=== PATIENT | female | born 1980 | race African-American/Black ===

== ENCOUNTER 2017-03-25 22:18 | Emergency (ER) | payer BC ==
[2017-03-26 00:04] VITALS: BP 126/82
== END 2017-03-26 01:07 | disposition left against medical advice (07) ==
LOC: ER 22:18
DX: Z53.21 Procedure and treatment not carried out due to patient leaving prior to being seen by health care provider (principal)

== ENCOUNTER 2017-03-26 08:53 | Emergency (ER) | payer BC ==
--- NOTE | 2017-03-26 10:39 | EKG REPORT ---
SEVERITY:- NORMAL ECG - SINUS RHYTHM : Confirmed by: June Kwong MD 26-Mar-2017 10:39:22
[2017-03-26] MEDS ORDERED: NORMAL SALINE 1000 ML 1,000 ML IV ONE (10:44)
--- NOTE | 2017-03-26 10:49 | ER Document Report ---
ED Dizziness/Weakness - General Chief Complaint: Dizziness Stated Complaint: WEAKNESS Time Seen by Provider: 03/26/17 10:06 Notes: The patient is a 36-year-old female, past medical history gastric sleeve 1 year ago at [facility], presents with feeling of lightheadedness when she stands and a brief syncopal episode last night. She has not been drinking much fluids in the past. Before the syncopal event, the patient was feeling lightheaded. She did not have any injuries from the event. She denies chest pain, palpitations, fevers, numbness, tingling, blurry vision, urinary symptoms, abdominal pain, nausea, vomiting, headache or neck pain. TRAVEL OUTSIDE OF THE [place] IN LAST 30 DAYS: No - Related Data Allergies/Adverse Reactions: lisinopril Allergy (Verified 03/26/17 08:57) Past Medical History - General Information source: Patient - Social History Smoking Status: Never Smoker Chew tobacco use (# tins/day): No Frequency of alcohol use: None Drug Abuse: None Family History: Reviewed & Not Pertinent Patient has suicidal ideation: No Patient has homicidal ideation: No - Past Medical History Cardiac Medical History: Reports: Hx Hypertension - DX IN 2007 Endocrine Medical History: Reports: Hx Diabetes Mellitus Type 1, Hx Diabetes Mellitus Type 2 - DX IN 2007 Renal/ Medical History: Denies: Hx Peritoneal Dialysis Psychiatric Medical History: Reports: Hx Depression Past Surgical History: Reports: Hx Abdominal Surgery - GALL BLADDER, Hx Cholecystectomy - Immunizations Hx Diphtheria, Pertussis, Tetanus Vaccination: Yes Hx Pneumococcal Vaccination: 11/09/00 Review of Systems - Review of Systems Notes: REVIEW OF SYSTEMS: CONSTITUTIONAL: -fevers, -chills EENT: -eye pain, -difficulty swallowing, -nasal congestion CARDIOVASCULAR:-chest pain, +syncope. RESPIRATORY: -cough, -SOB GASTROINTESTINAL: -abdominal pain, -nausea, -vomiting, -diarrhea GENITOURINARY: -dysuria, -hematuria MUSCULOSKELETAL: -back pain, -neck pain SKIN: -rash or skin lesions. HEMATOLOGIC: -easy bruising or bleeding. LYMPHATIC: -swollen, enlarged glands. NEUROLOGICAL: -altered mental status or loss of consciousness, -headache, - neurologic symptoms PSYCHIATRIC: -anxiety, -depression. ALL OTHER SYSTEMS REVIEWED AND NEGATIVE. Physical Exam - Vital signs Vitals: Temp Pulse Resp BP Pulse Ox 98.0 F 66 18 122/74 98 03/26/17 08:58 03/26/17 08:58 03/26/17 08:58 03/26/17 08:58 03/26/17 08:58 - Notes Notes: PHYSICAL EXAMINATION: GENERAL: Well-appearing, well-nourished and in no acute distress. HEAD: Atraumatic, normocephalic. EYES: Pupils equal round and reactive to light, extraocular movements intact, sclera anicteric, conjunctiva are normal. ENT: nares patent, oropharynx clear without exudates. Moist mucous membranes. NECK: Normal range of motion, supple without lymphadenopathy LUNGS: Breath sounds clear to auscultation bilaterally and equal. No wheezes rales or rhonchi. HEART: Regular rate and rhythm without murmurs ABDOMEN: Soft, nontender, normoactive bowel sounds. No guarding, no rebound. No masses appreciated. EXTREMITIES: Normal range of motion, no pitting or edema. No cyanosis. NEUROLOGICAL: Cranial nerves grossly intact. Normal speech, normal gait. Normal sensory, motor, and reflex exams. PSYCH: Normal mood, normal affect. SKIN: Warm, Dry, normal turgor, no rashes or lesions noted. Course - Re-evaluation Re-evalutation: Pt after a syncopal episode that was preceded with a lightheaded feeling. EKG does not show any arrhythmias or evidence of WPW, [place] or prolonged QTc syndrome. Based on [place] syncope guidelines, patient is low risk and is safe to follow-up with her primary care physician for further evaluation and treatment. She is PERC negative. After IV fluids, patient feels much better and is safe to go home. Instructed her to drink plenty of fluids and to follow- up with her primary care physician. Given strict return precautions and she understands. - Vital Signs Vital signs: Temp Pulse Resp BP Pulse Ox 98.2 F 52 L 22 H 123/83 99 03/26/17 11:01 03/26/17 10:45 03/26/17 11:01 03/26/17 11:01 03/26/17 11:01 - Laboratory Result Diagrams: 03/26/17 10:33 03/26/17 10:33 Laboratory results interpreted by me: 03/26/17 10:33 RDW 14.9 H - EKG Interpretation by Me EKG shows normal: Sinus rhythm, [place], Intervals, QRS Complexes, ST-T Waves Discharge - Discharge Clinical Impression: Lightheaded Condition: Stable Disposition: HOME, SELF-CARE Additional Instructions: Drink plenty of water over the next few days. Follow-up with your primary care physician to have your symptoms rechecked. SYNCOPAL EPISODE: Syncope (fainting or near-fainting) can occur from many different health problems. Or it can be a simple fainting spell requiring no treatment. It is safe for you to go home, but further evaluation will likely be necessary. Your work-up may include tests for internal bleeding, heart disease, medication problems, or near-strokes. Tests are not always required, however, depending on the nature of your problem. The warning signs of an impending faint include: dizziness, lightheadedness , nausea, hot flashes, tingling, and weakness. If this happens, lay down and put your feet up, then wait until all of these symptoms have passed before standing up again. If these episodes become recurrent, or if you develop chest pain, heart palpitations, mental confusion, blurred vision, or headache, then you should call the physician, or go to the emergency room. NEAR SYNCOPAL EPISODE: Syncope or near syncope (fainting or near-fainting) can occur from many different health problems. Or it can be a simple fainting spell requiring no treatment. It is safe for you to go home, but further evaluation will likely be necessary. Your work-up may include tests for internal bleeding, heart disease, medication problems, or near-strokes. Tests are not always required, however, depending on the nature of your problem. The warning signs of an impending faint include: dizziness, lightheadedness , nausea, hot flashes, tingling, and weakness. If this happens, lay down and put your feet up, then wait until all of these symptoms have passed before standing up again. If these episodes become recurrent, or if you develop chest pain, heart palpitations, mental confusion, blurred vision, or headache, then you should call the physician, or go to the emergency room. NORMAL EXAM AND WORKUP: At this time, your examination and workup show no significant abnormality. No significant abnormal physical findings were noted. All laboratory, EKG, and imaging (x-ray, CT scans, ultrasound) studies that were ordered show no significant abnormality. Although your examination and all studies that were ordered showed no significant abnormal finding, there are no examinations and no studies that are 100% accurate. There is always the possibility that some abnormality could exist and not be detected with physical examination or within the limits and capabilities of laboratory and other studies. You should return or follow up as you were instructed on your visit today for further evaluation if your symptoms do not resolve. FOLLOW-UP CARE: If you have been referred to a physician for follow-up care, call the physician s office for an appointment as you were instructed or within the next two days. If you experience worsening or a significant change in your symptoms, notify the physician immediately or return to the Emergency Department at any time for re-evaluation. Referrals: TANVIR INIGUEZ, DO [Primary Care Provider] - Follow up as needed
[2017-03-26 11:08] LABS: ABSOLUTE EOSINOPHILS # (AUTO) 0.1 10^3/uL (0.0-0.6); ABSOLUTE LYMPHOCYTES (AUTO) 2.5 10^3/uL (0.5-4.7); ABSOLUTE MONOCYTES (AUTO) 0.5 10^3/uL (0.1-1.4); ABSOLUTE NEUT (AUTO) 3.8 10^3/uL (1.7-8.2); BASOPHILS % (AUTO) 0.6 % (0-2); EOSINOPHILS % (AUTO) 1.6 % (0-6); HEMATOCRIT 39.7 % (36.0-47.0); HEMOGLOBIN 13.2 g/dL (12.0-15.5); HGB HCT DIFFERENCE -0.1; LYMPHOCYTES % (AUTO) 36.1 % (13-45); MEAN CORPUSCULAR HEMOGLOBIN 29.1 pg (27.0-33.4); MEAN CORPUSCULAR HGB CONC 33.2 g/dL (32.0-36.0); MEAN CORPUSCULAR VOLUME 88 fl (80-97); MONOCYTES % (AUTO) 6.9 % (3-13); RED BLOOD COUNT 4.53 10^6/uL (3.72-5.28); RED CELL DISTRIBUTION WIDTH 14.9 % (11.5-14.0); SEGMENTED NEUTROPHILS % (AUTO) 54.8 % (42-78)
[2017-03-26 11:25] LABS: ANION GAP 11 (5-19); BLOOD UREA NITROGEN 12 mg/dL (7-20); CALCIUM 9.9 mg/dL (8.4-10.2); CARBON DIOXIDE 27 mmol/L (22-30); CHLORIDE 103 mmol/L (98-107); CREATINE KINASE 83 U/L (30-135); CREATININE RESULT 0.66 mg/dL (0.52-1.25); GLUCOSE 93 mg/dL (75-110); POTASSIUM 4.4 mmol/L (3.6-5.0); SODIUM 140.6 mmol/L (137-145)
[2017-03-26 12:05] VITALS: BP 111/62
== END 2017-03-26 12:27 | disposition home or self-care (01) ==
LOC: ER 08:53
DX: R55 Syncope and collapse (principal); E11.9 Type 2 diabetes mellitus without complications; I10 Essential (primary) hypertension; Z98.84 Bariatric surgery status; Z88.8 Allergy status to other drugs, medicaments and biological substances
CPT/HCPCS: 93005; 99284; 96360; 36415; 82550; 84703; 85025; 80048; 84484; 93010; J7030

== ENCOUNTER 2018-11-24 11:19 | Emergency (ER) | payer BC ==
[2018-11-24] MEDS ORDERED: ASPIRIN 81 MG TABLET, CHEWABLE PO ONE (12:43)
--- NOTE | 2018-11-24 12:44 | ER Document Report ---
ED Medical Screen (RME) - General Chief Complaint: Chest Pain Stated Complaint: CHEST PAIN Time Seen by Provider: 11/24/18 12:37 Notes: 38-year-old female to emergency department chief complaint of dizziness, headache and chest pain. States that yesterday she began having some dizziness and followed by chest pain. Currently having a little bit of chest pain, headache and dizziness as well. Has had a stress test in the past. Questionable heart attack but does not know the results of the stress test from 2 years ago. I have greeted and performed a rapid initial assessment of this patient. A comprehensive ED assessment and evaluation of the patient, analysis of test results and completion of the medical decision making process will be conducted by additional ED providers. TRAVEL OUTSIDE OF THE [place] IN LAST 30 DAYS: No - Related Data Allergies/Adverse Reactions: lisinopril Allergy (Verified 11/24/18 11:20) Past Medical History - Social History Frequency of alcohol use: None Drug Abuse: None - Past Medical History Cardiac Medical History: Reports: Hx Hypertension - DX IN 2007, not since gastric sleeve Endocrine Medical History: Reports: Hx Diabetes Mellitus Type 1, Hx Diabetes Mellitus Type 2 - DX IN 2007, not since gastric sleeve Renal/ Medical History: Denies: Hx Peritoneal Dialysis Psychiatric Medical History: Reports: Hx Depression Past Surgical History: Reports: Hx Abdominal Surgery - GALL BLADDER, Hx Cholecystectomy - Immunizations Hx Diphtheria, Pertussis, Tetanus Vaccination: Yes Review of Systems - Review of Systems Notes: View of systems positive for the following: Chest pain, dizziness, headache Physical Exam - Vital signs Vitals: Temp Pulse Resp BP Pulse Ox 98.6 F 78 18 132/68 H 100 11/24/18 11:35 11/24/18 11:35 11/24/18 11:35 11/24/18 11:35 11/24/18 11:35 - General General appearance: Appears well, Alert - Respiratory Respiratory status: No respiratory distress Chest status: Nontender Breath sounds: Normal Chest palpation: Normal - Cardiovascular Rhythm: Regular Heart sounds: Normal auscultation Murmur: No Course - Vital Signs Vital signs: Temp Pulse Resp BP Pulse Ox 98.6 F 78 18 132/68 H 100 11/24/18 11:35 11/24/18 11:35 11/24/18 11:35 11/24/18 11:35 11/24/18 11:35 Doctor's Discharge - Discharge Referrals: TANVIR INIGUEZ, [Primary Care Provider] - Follow up as needed
[2018-11-24 13:37] LABS: ABSOLUTE EOSINOPHILS # (AUTO) 0.1 10^3/uL (0.0-0.6); ABSOLUTE LYMPHOCYTES (AUTO) 3.3 10^3/uL (0.5-4.7); ABSOLUTE MONOCYTES (AUTO) 0.5 10^3/uL (0.1-1.4); ABSOLUTE NEUT (AUTO) 4.7 10^3/uL (1.7-8.2); BASOPHILS % (AUTO) 0.5 % (0-2); EOSINOPHILS % (AUTO) 0.7 % (0-6); HEMATOCRIT 35.3 % (36.0-47.0); HEMOGLOBIN 11.5 g/dL (12.0-15.5); LYMPHOCYTES % (AUTO) 38.2 % (13-45); MEAN CORPUSCULAR HGB CONC 32.5 g/dL (32.0-36.0); MEAN CORPUSCULAR VOLUME 80 fl (80-97); MONOCYTES % (AUTO) 6.3 % (3-13); PLATELET COUNT 261 10^3/uL (150-450); RED BLOOD COUNT 4.43 10^6/uL (3.72-5.28); RED CELL DISTRIBUTION WIDTH 15.6 % (11.5-14.0); SEGMENTED NEUTROPHILS % (AUTO) 54.3 % (42-78); TOTAL CELLS COUNTED % (AUTO) 100 %; WHITE BLOOD COUNT 8.6 10^3/uL (4.0-10.5)
--- NOTE | 2018-11-24 14:05 | RADIOLOGY REPORT (SQ) ---
EXAM DESCRIPTION: CHEST SINGLE VIEW COMPLETED DATE/TIME: 11/24/2018 1:38 pm REASON FOR STUDY: chest pain COMPARISON: 08/27/2016. EXAM PARAMETERS: NUMBER OF VIEWS: One view. TECHNIQUE: Single frontal radiographic view of the chest acquired. RADIATION DOSE: NA LIMITATIONS: None. FINDINGS: LUNGS AND PLEURA: No opacities, masses or pneumothorax. No pleural effusion. MEDIASTINUM AND HILAR STRUCTURES: No masses. Contour normal. HEART AND VASCULAR STRUCTURES: Heart normal in size. Normal vasculature. BONES: No acute findings. HARDWARE: None in the chest. OTHER: No other significant finding. IMPRESSION: NO ACUTE RADIOGRAPHIC FINDING IN THE CHEST. TECHNICAL DOCUMENTATION: JOB ID: [id number] [employer]- All Rights Reserved Reading location - IP/workstation name: [email or web address]
[2018-11-24 14:10] LABS: ALANINE AMINOTRANSFERASE 18 U/L (9-52); ALBUMIN 3.9 g/dL (3.5-5.0); ALKALINE PHOSPHATASE 73 U/L (38-126); ASPARTATE AMINO TRANSFERASE 19 U/L (14-36); BILIRUBIN,DIRECT 0.1 mg/dL (0.0-0.4); BILIRUBIN,TOTAL 0.4 mg/dL (0.2-1.3); BLOOD UREA NITROGEN 12 mg/dL (7-20); CALCIUM 9.4 mg/dL (8.4-10.2); CREATINE KINASE 58 U/L (30-135); GLUCOSE 84 mg/dL (75-110); POTASSIUM 4.3 mmol/L (3.6-5.0); TOTAL PROTEIN 6.8 g/dL (6.3-8.2)
[2018-11-24 14:15] LABS: CARBON DIOXIDE 28 mmol/L (22-30); CHLORIDE 107 mmol/L (98-107)
[2018-11-24 14:18] LABS: ANION GAP 4 (5-19)
[2018-11-24 14:20] LABS: CREATINE KINASE MB 0.24 ng/mL (<4.55)
[2018-11-24] MEDS ORDERED: MECLIZINE HCL 25 MG TABLET PO ONE (14:21)
[2018-11-24] MEDS ORDERED: ACETAMINOPHEN 325 MG TABLET PO ONE (14:22)
[2018-11-24 14:24] LABS: TROPONIN I < 0.012 ng/mL
--- NOTE | 2018-11-24 14:30 | ER Document Report ---
ED General - General Chief Complaint: Chest Pain Stated Complaint: CHEST PAIN Time Seen by Provider: 11/24/18 12:37 Notes: Patient is a 38-year-old female that presents to the emergency department for chief complaint of dizziness and chest discomfort. Patient states that briefly this morning she had some chest discomfort, that has since resolved, lasted less than 20 minutes, she described as a tightness on the left side of her chest, no associated shortness of breath, difficulty breathing, nausea, vomiting. She states she had some dizziness, and some mild room spinning, which is also resolved, she had a similar episode on Thursday with the dizziness, and she is had this in the past as well. She denies having any vomiting associated with this. But does admit to having a mild headache, she describes as a mild dull ache, she has had worse headaches in the past. Denies any numbness, tingling or weakness in any extremity. No other complaints at this time. She does report having a history of having a cardiac stress test within the last 2 years, that was negative. Past Medical History: History of diabetes, hypertension and sleep apnea, that have since resolved after gastric sleeve surgery Past Surgical History: Gastric sleeve, cholecystectomy Social History: Denies tobacco, alcohol or drug use. Family History: Reviewed and noncontributory for presenting illness Allergies: Reviewed, see documented allergy list. REVIEW OF SYSTEMS: Other than noted above, the 12 point review of systems was reviewed with the patient and were negative, all pertinent findings are included in the HPI. PHYSICAL EXAMINATION: Vital signs reviewed, nursing noted reviewed. GENERAL: Well-appearing, well-nourished and in no acute distress. HEAD: Atraumatic, normocephalic. EYES: Eyes appear normal, extraocular movements intact, sclera anicteric, conjunctiva are normal. ENT: nares patent, oropharynx clear without exudates. Moist mucous membranes. TMs appear normal bilaterally. NECK: Normal range of motion, supple without lymphadenopathy LUNGS: Breath sounds clear to auscultation bilaterally and equal. No wheezes rales or rhonchi. HEART: Regular rate and rhythm without murmurs ABDOMEN: Soft, nontender, normoactive bowel sounds. No rebound, guarding, or rigidity. No masses appreciated. EXTREMITIES: Nontender, good range of motion, no pitting or edema. NEUROLOGICAL: No focal neurological deficits. Moves all extremities spontaneously Motor and sensory grossly intact on exam. PSYCH: Normal mood, normal affect. SKIN: Warm, Dry, normal turgor, no rashes or lesions noted on exposed skin TRAVEL OUTSIDE OF THE [place] IN LAST 30 DAYS: No - Related Data Allergies/Adverse Reactions: lisinopril Allergy (Verified 11/24/18 11:20) Past Medical History - Social History Smoking Status: Never Smoker Frequency of alcohol use: None Drug Abuse: None Family History: Reviewed & Not Pertinent Patient has suicidal ideation: No Patient has homicidal ideation: No - Past Medical History Cardiac Medical History: Reports: Hx Hypertension - DX IN 2007, not since gastric sleeve Endocrine Medical History: Reports: Hx Diabetes Mellitus Type 1, Hx Diabetes Mellitus Type 2 - DX IN 2007, not since gastric sleeve Renal/ Medical History: Denies: Hx Peritoneal Dialysis Psychiatric Medical History: Reports: Hx Depression Past Surgical History: Reports: Hx Abdominal Surgery - GALL BLADDER, Hx Cholecystectomy - Immunizations Hx Diphtheria, Pertussis, Tetanus Vaccination: Yes Hx Pneumococcal Vaccination: 11/09/00 Physical Exam - Vital signs Vitals: Temp Pulse Resp BP Pulse Ox 98.6 F 78 18 132/68 H 100 11/24/18 11:35 11/24/18 11:35 11/24/18 11:35 11/24/18 11:35 11/24/18 11:35 Course - Re-evaluation Re-evalutation: Presentation of chest pain in an otherwise well appearing patient. Low clinical suspicion for ACS given clinical history, exam, EKG without ST elevations or depressions, and negative initial troponin. HEART score less than or equal to 3. PE also seems unlikely given clinical history, absence of tachycardia or dyspnea. Patient is PERC criteria negative. CXR without evidence of pneumothorax or pneumonia. No widened mediastinum. Aortic dissection also seems unlikely given history, symmetric pulses, CXR, and vitals. HEART Score: History 0 ECG 0 Age 0 Risk Factors 1 Troponin 0 Total: 1 Chest pain in a patient without evidence of cardiac or other serious etiology on workup today. I discussed with patient that, based on their age, risk factors and emergency department testing today, the likelihood that their symptoms are related to a heart attack is very low (estimated risk of heart attack or over the next 30 days of less than 1%). The patient demonstrates decision making capacity and has verbalized an understanding of these risks to me. Based on this, the patient has chosen to follow-up as an outpatient. Usual chest pain return precautions reviewed. The patient states understanding and agreement with this plan. Patient was given aspirin ordered by triage provider, she is also given Tylenol for her mild headache, and meclizine, for the dizziness she was having, that was resolved, but want to prevent further vertigo symptoms. Her symptoms seem most consistent with benign positional vertigo, advised follow-up will prescribe meclizine to take if needed, advised her to follow-up with her primary care, to have repeat cardiac stress testing although her heart score today is 1, and low risk, patient agreeable to this plan of care. - Vital Signs Vital signs: Temp Pulse Resp BP Pulse Ox 98.6 F 78 18 132/68 H 100 11/24/18 11:35 11/24/18 11:35 11/24/18 11:35 11/24/18 11:35 11/24/18 11:35 - Laboratory Result Diagrams: 11/24/18 13:10 11/24/18 13:10 Laboratory results interpreted by me: 11/24/18 11/24/18 13:10 13:10 Hgb 11.5 L Hct 35.3 L MCH 26.0 L RDW 15.6 H Anion Gap 4 L - EKG Interpretation by Me Additional EKG results interpreted by me: EKG demonstrates sinus rhythm with a ventricular rate of 76 bpm, normal axis, normal intervals, no evidence of acute ischemia on this EKG, this is compared with prior EKG from 03/26/2017 without significant change. Discharge - Discharge Clinical Impression: Dizziness Condition: Stable Disposition: HOME, SELF-CARE Instructions: Dizziness ([facility]) Additional Instructions: Please return to the emergency department if you have any worsening, or concern of your symptoms. Please return to the emergency department if you develop chest pain, difficulty breathing, severe abdominal pain, or ongoing vomiting. Please follow-up with your primary care physician in 2-3 days and any other recommended physicians. If prescribed, take all medications as directed. If you have any questions or concerns do not hesitate to return the emergency department for evaluation. Prescriptions: RX: Meclizine HCl [Antivert 25 mg Tablet] 25 mg PO TID PRN #21 tablet PRN Reason: Dizziness Referrals: GEETHA,TANVIR RADHA, DO [Primary Care Provider] - Follow up as needed GREG CORTEZ MD [ACTIVE STAFF] - Follow up in 3-5 days (cardiology for stress test )
[2018-11-24 16:22] VITALS: BP 123/76
--- NOTE | 2018-11-24 18:00 | EKG REPORT ---
SEVERITY:- BORDERLINE ECG - SINUS RHYTHM BORDERLINE T WAVE ABNORMALITIES : Confirmed by: Marianela Carlos 24-Nov-2018 17:59:56
== END 2018-11-24 16:23 | disposition home or self-care (01) ==
LOC: ER 11:19
DX: R42 Dizziness and giddiness (principal); R07.9 Chest pain, unspecified; Z90.49 Acquired absence of other specified parts of digestive tract; Z98.84 Bariatric surgery status
CPT/HCPCS: 36415; 71045; 80053; 82550; 82553; 84484; 85025; 93005; 93010; 99285

== ENCOUNTER 2018-12-27 10:15 | Emergency (ER) | payer BC ==
[2018-12-27] MEDS ORDERED: ACETAMINOPHEN 325 MG TABLET PO ONE (10:46)
--- NOTE | 2018-12-27 10:46 | ER Document Report ---
ED Medical Screen (RME) - General Chief Complaint: Chest Pain Stated Complaint: PALPITATIONS Time Seen by Provider: 12/27/18 10:36 Primary Care Provider: TANVIR INIGUEZ DO [Primary Care Provider] - Follow up as needed Notes: Patient is a 38-year-old female that presents to the emergency department for chief complaint of chest pains and palpitation. Patient states his been having symptoms off and on, not currently experiencing chest pain but had it earlier in the waiting room, had stress test she thinks about 1 year ago that was negative. ROS: Other than noted above, the 12 point review of systems was reviewed with the patient and were negative, all pertinent findings are included in the HPI. PHYSICAL EXAMINATION: Vital signs reviewed. GENERAL: Well-appearing, well-nourished and in no acute distress. HEAD: Atraumatic, normocephalic. EYES: Pupils equal round extraocular movements intact, conjunctiva are normal. ENT: Nares patent NECK: Normal range of motion CV: Heart regular rate and rhythm LUNGS: No respiratory distress Musculoskeletal: Normal range of motion NEUROLOGICAL: Normal speech PSYCH: Normal mood, normal affect. MDM: Patient seen and examined for rapid initial assessment. Vital signs reviewed. A comprehensive ED assessment and evaluation of the patient, analysis of test results and completion of the medical decision making process will be conducted by additional ED providers. *Note is created using voice recognition software and may contain spelling, syntax or grammatical errors. TRAVEL OUTSIDE OF THE [place] IN LAST 30 DAYS: No - Related Data Allergies/Adverse Reactions: lisinopril Allergy (Verified 12/27/18 10:16) Past Medical History - Social History Frequency of alcohol use: None Drug Abuse: None - Past Medical History Cardiac Medical History: Reports: Hx Heart Attack - "mild", Hx Hypertension - DX IN 2007, not since gastric sleeve Endocrine Medical History: Reports: Hx Diabetes Mellitus Type 1, Hx Diabetes Mellitus Type 2 - DX [place] 2007, not since gastric sleeve Renal/ Medical History: Denies: Hx Peritoneal Dialysis Psychiatric Medical History: Reports: Hx Depression Past Surgical History: Reports: Hx Abdominal Surgery - GALL BLADDER, Hx Cholecystectomy - Immunizations Hx Diphtheria, Pertussis, Tetanus Vaccination: Yes Physical Exam - Vital signs Vitals: Temp Pulse Resp BP Pulse Ox 99.8 F 65 18 126/68 H 100 12/27/18 10:29 12/27/18 10:29 12/27/18 10:29 12/27/18 10:29 12/27/18 10:29 Course - Vital Signs Vital signs: Temp Pulse Resp BP Pulse Ox 99.8 F 65 18 126/68 H 100 12/27/18 10:29 12/27/18 10:29 12/27/18 10:29 12/27/18 10:29 12/27/18 10:29 Doctor's Discharge - Discharge Referrals: TANVIR INIGUEZ DO [Primary Care Provider] - Follow up as needed
--- NOTE | 2018-12-27 11:04 | EKG REPORT ---
SEVERITY:- NORMAL ECG - SINUS RHYTHM : Confirmed by: Juancho Becker MD 27-Dec-2018 11:04:10
--- NOTE | 2018-12-27 11:33 | RADIOLOGY REPORT (SQ) ---
EXAM DESCRIPTION: CHEST SINGLE VIEW COMPLETED DATE/TIME: 12/27/2018 11:08 am REASON FOR STUDY: cp COMPARISON: AP chest 11/24/2018, 08/27/2016 Two-view chest 05/21/2016 EXAM PARAMETERS: NUMBER OF VIEWS: One view. TECHNIQUE: Single frontal radiographic view of the chest acquired. RADIATION DOSE: NA LIMITATIONS: None. FINDINGS: LUNGS AND PLEURA: No opacities, masses or pneumothorax. No pleural effusion. MEDIASTINUM AND HILAR STRUCTURES: No masses. Contour normal. HEART AND VASCULAR STRUCTURES: Heart normal in size. Normal vasculature. BONES: No acute findings. HARDWARE: None in the chest. OTHER: No other significant finding. IMPRESSION: NO ACUTE RADIOGRAPHIC FINDING IN THE CHEST. TECHNICAL DOCUMENTATION: JOB ID: [id number] [employer]- All Rights Reserved Reading location - IP/workstation name: [email or web address]
[2018-12-27 12:00] LABS: ABSOLUTE BASOPHILS # (AUTO) 0.1 10^3/uL (0.0-0.2); ABSOLUTE EOSINOPHILS # (AUTO) 0.1 10^3/uL (0.0-0.6); ABSOLUTE LYMPHOCYTES (AUTO) 3.4 10^3/uL (0.5-4.7); ABSOLUTE MONOCYTES (AUTO) 0.5 10^3/uL (0.1-1.4); ABSOLUTE NEUT (AUTO) 5.1 10^3/uL (1.7-8.2); BASOPHILS % (AUTO) 0.7 % (0-2); EOSINOPHILS % (AUTO) 0.6 % (0-6); HEMATOCRIT 36.2 % (36.0-47.0); HEMOGLOBIN 11.8 g/dL (12.0-15.5); MEAN CORPUSCULAR HEMOGLOBIN 25.6 pg (27.0-33.4); MEAN CORPUSCULAR HGB CONC 32.5 g/dL (32.0-36.0); MEAN CORPUSCULAR VOLUME 79 fl (80-97); MONOCYTES % (AUTO) 5.3 % (3-13); PLATELET COUNT 284 10^3/uL (150-450); RED CELL DISTRIBUTION WIDTH 15.6 % (11.5-14.0); SEGMENTED NEUTROPHILS % (AUTO) 56.4 % (42-78); TOTAL CELLS COUNTED % (AUTO) 100 %; WHITE BLOOD COUNT 9.1 10^3/uL (4.0-10.5)
[2018-12-27 12:10] LABS: ALANINE AMINOTRANSFERASE 12 U/L (9-52); ALBUMIN 4.2 g/dL (3.5-5.0); ALKALINE PHOSPHATASE 76 U/L (38-126); ANION GAP 9 (5-19); ASPARTATE AMINO TRANSFERASE 22 U/L (14-36); BILIRUBIN,DIRECT 0.5 mg/dL (0.0-0.4); BLOOD UREA NITROGEN 13 mg/dL (7-20); CALCIUM 9.5 mg/dL (8.4-10.2); CARBON DIOXIDE 25 mmol/L (22-30); CHLORIDE 105 mmol/L (98-107); GLUCOSE 105 mg/dL (75-110); POTASSIUM 4.6 mmol/L (3.6-5.0); SODIUM 139.2 mmol/L (137-145); TOTAL PROTEIN 7.3 g/dL (6.3-8.2)
--- NOTE | 2018-12-27 12:43 | ER Document Report ---
ED General - General Chief Complaint: Chest Pain Stated Complaint: PALPITATIONS Time Seen by Provider: 12/27/18 10:36 Primary Care Provider: TANVIR INIGUEZ DO [Primary Care Provider] - Follow up as needed Notes: 38-year-old female presents to the ER complaining of mild chest discomfort and palpitations. The patient stated this started about 8 PM. Stated that she felt dizzy and felt her heart racing. He felt short of breath. This is resolved. The patient had a similar episode of this 2 years ago where she was sent to [place] and had a negative stress test. She was initially told that she had a heart attack here but when she arrived in [place] they told her she did not. Patient stated she had a negative stress test has been fine up until last night she was just watching TV. Denies any stress or illicit drug use. She complained of the sensation of a rapid heart rate palpitations shortness of breath and dizziness that has since resolved. She denies any fever chills had a has had a little nasal congestion due to the weather change otherwise has felt okay TRAVEL OUTSIDE OF THE [place] IN LAST 30 DAYS: No - Related Data Allergies/Adverse Reactions: lisinopril Allergy (Verified 12/27/18 10:16) Past Medical History - Social History Smoking Status: Never Smoker Frequency of alcohol use: None Drug Abuse: None Family History: Reviewed & Not Pertinent Patient has suicidal ideation: No Patient has homicidal ideation: No - Past Medical History Cardiac Medical History: Reports: Hx Heart Attack - "mild", Hx Hypertension - DX IN 2007, not since gastric sleeve Endocrine Medical History: Reports: Hx Diabetes Mellitus Type 1, Hx Diabetes Mellitus Type 2 - DX IN 2007, not since gastric sleeve Renal/ Medical History: Denies: Hx Peritoneal Dialysis Psychiatric Medical History: Reports: Hx Depression Past Surgical History: Reports: Hx Abdominal Surgery - GALL BLADDER, Hx Cholecystectomy - Immunizations Hx Diphtheria, Pertussis, Tetanus Vaccination: Yes Hx Pneumococcal Vaccination: 11/09/00 Review of Systems - Review of Systems Constitutional: denies: Chills, Fever EENT: Nose congestion Cardiovascular: Chest pain, Palpitations, Heart racing, Dyspnea Respiratory: Cough, Short of breath Gastrointestinal: denies: Nausea, Vomiting -: Yes All other systems reviewed and negative Physical Exam - Vital signs Vitals: Temp Pulse Resp BP Pulse Ox 99.8 F 65 18 126/68 H 100 12/27/18 10:29 12/27/18 10:29 12/27/18 10:29 12/27/18 10:29 12/27/18 10:29 - Notes Notes: GENERAL_APPEARANCE: well_nourished, alert, cooperative, no_acute_distress, no_obvious_discomfort. VITALS: reviewed, see vital signs table. HEAD: no_swelling\\tenderness on the head. EYES: PERRL, EOMI, conjunctiva_clear. NOSE: no_nasal_discharge. MOUTH: (-)decreased moisture. THROAT: no_tonsilar_inflammation, no_airway_obstruction. no_lymphadenopathy NECK: supple, no_neck_tenderness, (-)thyromegaly. BACK: no_back_tenderness. CHEST_WALL: no_chest_tenderness. LUNGS: no_wheezing, no_rales, no_rhonchi, (-)accessory muscle use, good air exchange bilateral. HEART: normal_rate, normal_rhythm, normal_S1, normal_S2, (-)S3, (-)S4, no_murmur, no_rub. ABDOMEN: normal_BS, soft, no_abd_tenderness, (-)guarding, (-)rebound, no_organo megaly, no_abd_masses. EXTREMITIES: good pulses in all_extremities, no_swelling\\tenderness in the extremities, no_edema. SKIN: warm, dry, good_color, no_rash. MENTAL_STATUS: speech_clear, oriented_X_3, anxious _affect, responds_appropriately to questions. Course - Re-evaluation Re-evalutation: 12/27/18 12:42 38-year-old female presents with dizziness shortness of breath and palpitations. Patient is feeling better now we will work her up and monitor her on the monitoring analyst. So far no arrhythmia has been seen 12/27/18 14:22 Work appears look good been negative. We have been watching her on telemetry and she has had no ectopy runs of A. fib or a flutter. No arrhythmias. The patient is feeling much better. There is no troponin elevation. My suspicion for ACS here is low. The clinical history seems more consistent with palpitations. I spoke with her about this if she has additional symptoms she is to return and she may need to be set up with a Holter monitor. - Vital Signs Vital signs: Temp Pulse Resp BP Pulse Ox 99.8 F 65 21 H 109/75 100 12/27/18 10:29 12/27/18 10:29 12/27/18 13:01 12/27/18 13:01 12/27/18 13:01 - Laboratory Result Diagrams: 12/27/18 11:45 12/27/18 11:45 Laboratory results interpreted by me: 12/27/18 12/27/18 11:45 11:45 Hgb 11.8 L MCV 79 L MCH 25.6 L RDW 15.6 H Direct Bilirubin 0.5 H - EKG Interpretation by Me EKG shows normal: Sinus rhythm Rate: Normal When compared to previous EKG there are: No significant change Discharge - Discharge Clinical Impression: Palpitations Condition: Good Disposition: HOME, SELF-CARE Instructions: Palpitations (Irregular or Rapid Heartrate) (OM) Additional Instructions: If you begin having repeat palpitations you may need to return to the ER so that we can reevaluate your heart rhythm. Referrals: TANVIR INIGUEZ DO [Primary Care Provider] - Follow up as needed
[2018-12-27 16:41] VITALS: BP 113/62
== END 2018-12-27 16:35 | disposition home or self-care (01) ==
LOC: ER 10:15
DX: R00.2 Palpitations (principal); R07.9 Chest pain, unspecified; R42 Dizziness and giddiness; R09.81 Nasal congestion; R05 Cough; R06.02 Shortness of breath; Z98.84 Bariatric surgery status
CPT/HCPCS: 36415; 71045; 80053; 84484; 85025; 93005; 93010; 99285

== ENCOUNTER 2019-06-03 02:08 | Emergency (ER) | payer BC, OTHER ==
[2019-06-03] MEDS ORDERED: NORMAL SALINE 1000 ML 1,000 ML IV ONE (02:41)
[2019-06-03] MEDS ORDERED: ONDANSETRON HCL INJ/PF 4 MG/2 ML SDV IV ONE (02:41)
[2019-06-03] MEDS ORDERED: KETOROLAC TROMETHAMINE INJ/PF 30 MG/1 ML SDV IV ONE (02:41)
[2019-06-03] MEDS ORDERED: MORPHINE SULFATE 10 MG/ML INJ IV ONE (02:41)
--- NOTE | 2019-06-03 02:47 | ER Document Report ---
ED GI/ - General Chief Complaint: Flank Pain Stated Complaint: FLANK PAIN Time Seen by Provider: 06/03/19 02:27 Primary Care Provider: TANVIR INIGUEZ DO [NO LOCAL MD] - Follow up as needed Notes: Patient is a 39-year-old female that comes emergency department for chief complaint of sharp mid bilateral abdominal pain and pain radiating to her back on both sides. Pain is actually worse in the back. She states symptoms started during the day, worsened into this evening, did not resolve with Tylenol at home . She states that she has had the same pain "many times", states that no one has ever figured out the problem. She has a history of gastric bypass, denies abdominal surgeries otherwise. She is currently on her menstrual cycle. She denies dysuria, fever/chills, vomiting. Patient does state that she has not had a bowel movement in several days, she took a stool softener and laxative with no results. TRAVEL OUTSIDE OF THE [place] IN LAST 30 DAYS: No - Related Data Allergies/Adverse Reactions: lisinopril Allergy (Verified 12/27/18 10:16) Past Medical History - General Information source: Patient - Social History Smoking Status: Never Smoker Frequency of alcohol use: None Drug Abuse: None Lives with: Family Family History: Reviewed & Not Pertinent - Past Medical History Cardiac Medical History: Reports: Hx Heart Attack - "mild", Hx Hypertension - DX IN 2007, not since gastric sleeve Endocrine Medical History: Reports: Hx Diabetes Mellitus Type 1, Hx Diabetes Mellitus Type 2 - DX IN 2007, not since gastric sleeve Renal/ Medical History: Denies: Hx Peritoneal Dialysis Psychiatric Medical History: Reports: Hx Depression Past Surgical History: Reports: Hx Abdominal Surgery - GALL BLADDER, Hx Cholecystectomy - Immunizations Hx Diphtheria, Pertussis, Tetanus Vaccination: Yes Hx Pneumococcal Vaccination: 11/09/00 Review of Systems - Review of Systems Constitutional: See HPI EENT: No symptoms reported Cardiovascular: No symptoms reported Respiratory: No symptoms reported Gastrointestinal: See HPI Genitourinary: See HPI Female Genitourinary: See HPI Musculoskeletal: No symptoms reported Skin: No symptoms reported Hematologic/Lymphatic: No symptoms reported Neurological/Psychological: No symptoms reported Physical Exam - Vital signs Vitals: Temp Pulse BP Pulse Ox 99.5 F 103 H 136/75 H 97 06/03/19 02:12 06/03/19 02:12 06/03/19 02:12 06/03/19 02:12 - Notes Notes: GENERAL: Mildly uncomfortable but not in severe distress HEAD: Normocephalic, atraumatic. EYES: Pupils equal, round, and reactive to light. Extraocular movements intact. ENT: Oral mucosa moist, tongue midline. Oropharynx unremarkable. Airway patent. LUNGS: Clear to auscultation bilaterally, no wheezes, rales, or rhonchi. No respiratory distress. HEART: Regular rate and rhythm. No murmur ABDOMEN: Minimal generalized mid to lower abdominal tenderness, nonspecific, no guarding or rigidity. GENITOURINARY: Deferred EXTREMITIES: Moves all 4 extremities spontaneously. No edema, normal radial and dorsalis pedis pulses bilaterally. No cyanosis. BACK: no cervical, thoracic, lumbar midline tenderness. There is some CVA tenderness bilaterally but this is very mild. No saddle anesthesia, normal distal neurovascular exam. Moves all extremities in full range of motion. NEUROLOGICAL: Alert and oriented x3. Normal speech. Cranial nerves II through XII grossly intact. PSYCH: Slightly anxious SKIN: Warm, dry, normal turgor. No rashes or lesions noted. Course - Re-evaluation Re-evalutation: Patient appears uncomfortable but not toxic. Vital signs are unremarkable. She does have some CVA tenderness but not severe. This is bilateral. Abdomen is actually quite benign. After medications and IV fluids symptoms resolved. Patient is much improved on reevaluation. CBC nonspecific without leukocytosis, chemistry unremarkable. Urinalysis is a clean sample and indicates a urinary tract infection. Based on her presentation I suspect pyelonephritis. X-ray does not show constipation as patient thought, does not show free air either, I do not suspect perforation from gastric bypass. I discussed with patient. Because her symptoms are bilateral, she does not have a history of kidney stones, I have a low suspicion of obstructive/infected ureterolithiasis. Patient will be treated with Rocephin first and then ant ibiotics at home, providing with symptom management, discussed expectations, follow-up, and return precautions. Cultures pending. Patient states satisfaction and agreement. Stable at time of discharge. - Vital Signs Vital signs: Temp Pulse Resp BP Pulse Ox 98.8 F 88 17 112/57 L 98 06/03/19 05:07 06/03/19 05:07 06/03/19 05:07 06/03/19 05:07 06/03/19 05:07 - Laboratory Result Diagrams: 06/03/19 03:10 06/03/19 03:10 Laboratory results interpreted by me: 06/03/19 06/03/19 06/03/19 02:53 03:10 03:10 Hgb 11.3 L Hct 34.7 L MCV 78 L MCH 25.3 L RDW 17.7 H Seg Neutrophils % 89.4 H Lymphocytes % 9.2 L Monocytes % 0.7 L Absolute Neutrophils 8.8 H Chloride 108 H Glucose 122 H Urine Protein 30 H Urine Blood LARGE H Urine Nitrite POSITIVE H Ur Leukocyte Esterase SMALL H Discharge - Discharge Clinical Impression: Flank pain Abdominal pain Qualifiers: Abdominal location: generalized Qualified Code(s): R10.84 - Generalized abdominal pain Urinary tract infection Qualifiers: Urinary tract infection type: site unspecified Hematuria presence: without hematuria Qualified Code(s): N39.0 - Urinary tract infection, site not specified Condition: Stable Disposition: HOME, SELF-CARE Additional Instructions: Your evaluation and work-up are most consistent with a kidney infection. Take antibiotics as prescribed, take pain and nausea medication if needed, drink plenty fluids and rest. Follow-up with primary care. Return if you worsen including vomiting, fever, worsening pain, or any other concerning symptoms. Prescriptions: Cephalexin Monohydrate [Keflex 500 mg Capsule] 500 mg PO BID 7 Days #14 capsule Hydrocodone/Acetaminophen [Cypress 5-325 mg Tablet] 1 - 2 tab PO ASDIR PRN #10 tablet PRN Reason: Ondansetron [Zofran Odt 4 mg Tablet] 1 - 2 tab PO Q4H PRN #15 tab.rapdis PRN Reason: For Nausea/Vomiting Referrals: TANVIR INIGUEZ DO [NO LOCAL MD] - Follow up as needed
[2019-06-03 03:07] LABS: APPEARANCE,URINE SLIGHTLY-CLOUDY; BILIRUBIN,URINE NEGATIVE (NEGATIVE); COLOR,URINE YELLOW; GLUCOSE, URINE NEGATIVE (NEGATIVE); KETONES,URINE NEGATIVE (NEGATIVE); LEUKOCYTE ESTERASE,URINE SMALL (NEGATIVE); NITRITE,URINE POSITIVE (NEGATIVE); PROTEIN,URINE 30 mg/dL (NEGATIVE); URINE SPECIFIC GRAVITY 1.012; UROBILINOGEN,URINE NEGATIVE mg/dL (<2.0)
[2019-06-03 03:26] LABS: ABSOLUTE LYMPHOCYTES (AUTO) 0.9 10^3/uL (0.5-4.7); ABSOLUTE MONOCYTES (AUTO) 0.1 10^3/uL (0.1-1.4); ABSOLUTE NEUT (AUTO) 8.8 10^3/uL (1.7-8.2); BASOPHILS % (AUTO) 0.3 % (0-2); EOSINOPHILS % (AUTO) 0.4 % (0-6); HEMATOCRIT 34.7 % (36.0-47.0); HEMOGLOBIN 11.3 g/dL (12.0-15.5); LYMPHOCYTES % (AUTO) 9.2 % (13-45); MEAN CORPUSCULAR HEMOGLOBIN 25.3 pg (27.0-33.4); MEAN CORPUSCULAR HGB CONC 32.5 g/dL (32.0-36.0); MEAN CORPUSCULAR VOLUME 78 fl (80-97); MONOCYTES % (AUTO) 0.7 % (3-13); PLATELET COUNT 203 10^3/uL (150-450); RED BLOOD COUNT 4.47 10^6/uL (3.72-5.28); RED CELL DISTRIBUTION WIDTH 17.7 % (11.5-14.0); SEGMENTED NEUTROPHILS % (AUTO) 89.4 % (42-78); TOTAL CELLS COUNTED % (AUTO) 100 %; WHITE BLOOD COUNT 9.8 10^3/uL (4.0-10.5)
[2019-06-03 03:50] LABS: ALANINE AMINOTRANSFERASE 15 U/L (9-52); ALBUMIN 3.9 g/dL (3.5-5.0); ALKALINE PHOSPHATASE 69 U/L (38-126); ANION GAP 7 (5-19); ASPARTATE AMINO TRANSFERASE 26 U/L (14-36); BILIRUBIN,DIRECT 0.2 mg/dL (0.0-0.4); BLOOD UREA NITROGEN 13 mg/dL (7-20); CARBON DIOXIDE 27 mmol/L (22-30); CHLORIDE 108 mmol/L (98-107); GLUCOSE 122 mg/dL (75-110); POTASSIUM 3.8 mmol/L (3.6-5.0); TOTAL PROTEIN 7.2 g/dL (6.3-8.2)
--- NOTE | 2019-06-03 04:19 | RADIOLOGY REPORT (SQ) ---
CLINICAL HISTORY: sharp mid abd pain, hx gastric bypass COMPARISON: None. TECHNIQUE: XR ABDOMEN SUPINE AND ERECT WITH CHEST (ABD ACUTE SERIES) 06/03/2019 2:41 AM CDT FINDINGS: Bowel gas pattern is nonspecific. There are no abnormal radiopaque foreign bodies or abnormal calcifications. Osseous structures are grossly unremarkable. The heart is normal in size. Lungs are clear. Cholecystectomy was performed. There are postoperative changes in the left upper quadrant. IMPRESSION: No bowel obstruction.
[2019-06-03] MEDS ORDERED: CEFTRIAXONE 1 GM/D5W RTU 1 GM/50 ML RTUPB IV ONE (04:43)
[2019-06-03] MEDS ORDERED: ONDANSETRON ODT 4 MG TAB (6 TAB/ER DISP) PO PRN (04:44)
[2019-06-03] MEDS ORDERED: HYDROCODONE/ACETAMINOPHEN 5-325 MG (6 TAB/ER DISP) PO PRN (04:44)
[2019-06-03 05:19] VITALS: BP 112/57
== END 2019-06-03 05:19 | disposition home or self-care (01) ==
LOC: ER 02:08
DX: N39.0 Urinary tract infection, site not specified (principal); R10.84 Generalized abdominal pain; R10.9 Unspecified abdominal pain; M54.9 Dorsalgia, unspecified; I10 Essential (primary) hypertension; E11.9 Type 2 diabetes mellitus without complications
CPT/HCPCS: 36415; 87086; 83690; 84703; 85025; 87088; 80053; 81001; 87186; 74022; J1885; J2270; J2405; J7030; J0696